=== PATIENT | female | born 1950 | race Caucasian/White ===

== ENCOUNTER 2024-01-22 12:55 | Emergency (ER) | payer OTHER ==
[2024-01-22 13:18] VITALS: BP 147/80; PULSE 82; RESP 16; TEMP 97.5; BMI 25.8
== END 2024-01-22 16:24 | disposition home or self-care (01) ==
LOC: JERFT 12:55
DX: M54.50 Low back pain, unspecified (principal); M54.2 Cervicalgia; V49.88XA Car occupant (driver) (passenger) injured in other specified transport accidents, initial encounter
CPT/HCPCS: 70450-TC; 72100-TC-FY; 72125-TC; 93005; 93010; 99284-25